=== PATIENT | male | born 1985 | race African-American/Black ===

== ENCOUNTER 2024-08-09 01:27 | Emergency (ER) | payer OTHER ==
[~2024-08-09] VITALS: Ht 182.9 cm; Wt 101.8 kg
[2024-08-09 01:33] VITALS: TEMP 98.7
[2024-08-09 01:39] VITALS: BP 144/84; PULSE 91; RESP 16; O2SAT 96
== END 2024-08-09 02:09 ==
LOC: EMS 01:27
DX: Z02.89 Encounter for other administrative examinations (principal); Z65.3 Problems related to other legal circumstances; V89.2XXA Person injured in unspecified motor-vehicle accident, traffic, initial encounter; Y93.89 Activity, other specified; Y92.410 Unspecified street and highway as the place of occurrence of the external cause; Y99.8 Other external cause status
CPT/HCPCS: 99283; Z7502